=== PATIENT | female | born 1960 | race African-American/Black ===

== ENCOUNTER 2016-07-23 17:19 | Emergency (ER) | payer MEDICARE, OTHER ==
--- NOTE | 2016-07-23 20:13 | RAD ---
FOUR VIEWS RIGHT KNEE 07/23/16 HISTORY: Fall. Extreme pain. Replacement two years ago. AP, lateral and both oblique views right knee obtained. Four views right knee demonstrates no evidence of right knee fractures, subluxations or bony lesions . The patient has had a previous right knee arthroplasty. No evidence of acute fractures or bony les ions seen. Osseous structures intact. IMPRESSION: Post right knee arthroplasty with no evidence of definite acute abnormality seen. POS: [id number]
== END 2016-07-23 18:24 | disposition home or self-care (01) ==
LOC: NAV ERS 17:19
DX: M25.561 Pain in right knee (principal); I10 Essential (primary) hypertension; F31.9 Bipolar disorder, unspecified; F41.9 Anxiety disorder, unspecified; F17.200 Nicotine dependence, unspecified, uncomplicated; Z79.899 Other long term (current) drug therapy